=== PATIENT | male | born 1940 | race Hispanic/Latino ===

== ENCOUNTER 2016-04-19 12:40 | Outpatient (CLI) | payer MEDICARE, OTHER ==
--- NOTE | 2016-04-22 09:26 | Mammography Report ---
BONE DENSITY STUDY: DEFINITIONS: BMD = Bone Mineral Density T-score = BMD related to mean peak bone mass of young adult (mean expressed in Standard Deviation) Z-score = Age matched BMD expressed in SD World Health Organization (WHO) Diagnostic Criteria Normal T-score > -1 SD Osteopenia T-score between -1 and -2.4 SD Osteoporosis T-score -2.5 SD or below FINDINGS: The average L1-L4 BMD is 1.398 with a T-value score of 2.8. The average right hip BMD is 1.042 with a T-value score of 0.1. IMPRESSION: The patient's T-score is diagnostic for normal bone density and low relative risk for fracture. RECOMMENDATION: Follow-up with referring physician. NOTE: BMD is not the only risk factor for fracture; also consider factors such as the patient's age, risk of falling, previous osteoporotic fracture, family history of osteoporotic fractures, current smoker, and low body weight. Perez's triangle is a region of interest in femur, predominantly of trabecular bone. It is not a true anatomic site, and [facility] does not recommend its use clinically.
== END 2016-04-19 12:41 | disposition home or self-care (01) ==
LOC: MAMMO 12:40 → EDBD 12:40 → MAMMO 12:41
PROVIDERS: ATTEND Physician Assistant
DX: M85.88 Other specified disorders of bone density and structure, other site (principal)
CPT/HCPCS: 77080